=== PATIENT | female | born 1930 | race Caucasian/White ===

== ENCOUNTER 2017-01-04 10:15 | Inpatient (IN) | payer MEDICARE, OTHER ==
[~2017-01-04] VITALS: Ht 152.4 cm; Wt 52.0 kg
[~2017-01-04 10:15] MED LIST: ASPI81CH CHEW; BRIM0.155 EACH EYE; BUPR100T4 PO; CALC600T4 PO; CENTTAB PO; CLON0.2T PO; FURO40TA PO; HYDR25TA5 PO; LATA0.002 EACH EYE; OMEG100037 PO; POTA10TA8 PO; PROT40TA PO; RISP0.5T20 PO
[2017-01-04 10:26] VITALS: BP 167/115; PULSE 85; RESP 27; TEMP 99; O2SAT 91
[2017-01-04] MEDS ORDERED: SODIUM CHLORIDE 0.9% FLUSH 10 ML FLUSH IVF PRN (11:00)
--- NOTE | 2017-01-04 11:33 | RADRPT ---
EXAM DATE/TIME: 01/04/2017 11:14 [facility] COMPARISON: No previous studies available for comparison. INDICATIONS : Weakness, burning in chest and throat. MEDICAL HISTORY : None. SURGICAL HISTORY : None. ENCOUNTER: Initial ACUITY: 1 day PAIN SCORE: Non-responsive. LOCATION: Bilateral chest FINDINGS: Cardiomegaly and aortic calcification. Elevation of the right hemidiaphragm with right basilar atelec tasis. Osseous structures are intact. Minimal linear atelectasis at the left base. CONCLUSION: Mild atelectatic changes. Rigo Garza MD on January 04, 2017 at 11:31 Board Certified Radiologist. This report was verified electronically.
--- NOTE | 2017-01-04 11:43 | PD ---
HPI Chief Complaint: Abdominal Pain Time Seen by Provider: 11:05 Travel History International Travel<30 days: No Contact w/Intl Traveler<30days: No Traveled to known affect area: No History of Present Illness HPI Patient comes from nursing facility where she was reportedly complaining of abdominal pain. Patient states that she feels that she is part of a "sadistic cult" at the building where she resides. Patient states that a man who checks her blood pressure at night speaks to her in Khmer and make strange gesture towards her. Patient denies any chest pain, shortness of breath, abdominal pain , nausea, vomiting, diarrhea, or fevers. Patient requesting that her urine be checked but denies any urinary symptoms. PFSH Past Medical History Hx Anticoagulant Therapy: Yes (81MG ASA) Bipolar Disorder: Yes Anxiety: Yes Cardiovascular Problems: Yes (HTN) High Cholesterol: Yes Dementia: Yes Diminished Hearing: Yes Hypertension: Yes Psychiatric: Yes (PERSONALITY DISORDER) Tetanus Vaccination: Unknown Influenza Vaccination: No (UNKNOWN) Social History Alcohol Use: No Tobacco Use: No Substance Use: No Allergies-Medications (Allergen,Severity, Reaction): Coded Allergies: No Known Allergies (Unverified , 08/16/16) Reported Meds & Prescriptions Reported Meds & Active Scripts Active Protonix (Pantoprazole Sodium) 40 Mg Tab 40 Mg PO DAILY Reported Fish Oil 1000 mg ([place]-3 Fatty Acids) 1 Cap Cap 1,000 Mg PO DAILY Risperdal (Risperidone) 0.5 Mg Tab 0.5 Mg PO Q12HR Potassium Chloride CR (Potassium Chloride) 10 Meq Tab 10 Meq PO BID Latanoprost Opth Drops (Latanoprost) 0.005% Drops 1 Drop EACH EYE HS Refrigerate until opened. Hydrochlorothiazide 25 Mg Tab 25 Mg PO DAILY Furosemide 40 Mg Tab 40 Mg PO BID Clonidine (Clonidine HCl) 0.2 Mg Tab 0.2 Mg PO BID Centrum Silver (Multiple Vitamins W/ Minerals) 1 Tab 1 Tab PO DAILY Calcium Carbonate 1,500 Mg Tab 1,500 Mg PO BID 1,500 mg calcium carbonate (600 mg elemental calcium) Bupropion HCl 100 Mg Tab 100 Mg PO BID Brimonidine Opth Drops (Brimonidine Tartrate) 0.15% Soln 1 Drop EACH EYE TID Aspirin 81 Mg Chew 81 Mg CHEW DAILY Review of Systems Except as stated in HPI: all other systems reviewed are Neg Physical Exam Narrative GENERAL: Well-developed, overly nourished, in no acute distress, and non-ill appearing. SKIN: Focused skin assessment warm and dry. HEAD: Atraumatic. Normocephalic. EYES: Pupils equal and round. EOMI. No scleral icterus. No injection or drainage. ENT: No nasal bleeding or discharge. Lips are dry, but mucous membranes pink and moist. NECK: Trachea midline. Supple. No nuclear rigidity. CARDIOVASCULAR: Regular rate and rhythm. No murmur appreciated. RESPIRATORY: No accessory muscle use. No respiratory distress. Clear to auscultation. Breath sounds equal bilaterally. GASTROINTESTINAL: Abdomen soft, non-tender, nondistended. Hepatic and splenic margins not palpable. Normal bowel sounds 4. No pulsatile mass. There is a firm mass noted left lower quadrant abdomen. Patient reports this is a fibroid. MUSCULOSKELETAL: No obvious deformities. No clubbing. No cyanosis. No edema. Full range of motion. NEUROLOGICAL: Awake and alert. No obvious cranial nerve deficits. Motor grossly within normal limits. Normal speech. PSYCHIATRIC: Appropriate mood and affect. Data Data Last Documented VS Vital Signs Date Time Temp Pulse Resp B/P Pulse Ox O2 Delivery O2 Flow Rate FiO2 01/04/17 13:59 82 16 152/90 95 Room Air 01/04/17 10:26 99.0 Orders Electrocardiogram (01/04/17 10:56) Complete Blood Count With Diff (01/04/17 10:56) Comprehensive Metabolic Panel (01/04/17 10:56) Creatine Kinase (Cpk) (01/04/17 10:56) Prothrombin Time / Inr (Pt) (01/04/17 10:56) Act Partial Throm Time (Ptt) (01/04/17 10:56) Troponin I (01/04/17 10:56) Urinalysis - C+S If Indicated (01/04/17 10:56) Chest, Single Ap (01/04/17 10:56) Ct Brain W/O Iv Contrast(Rout) (01/04/17 10:56) Ecg Monitoring (01/04/17 10:56) Iv Access Insert/Monitor (01/04/17 10:56) Oximetry (01/04/17 10:56) Sodium Chloride 0.9% Flush (Ns Flush) (01/04/17 11:00) Ct Abd/Pel W Iv Contrast(Rout) (01/04/17 ) Urine Culture (01/04/17 12:00) Ceftriaxone Inj (Rocephin Inj) (01/04/17 13:00) Potassium Phosphate Inj (Potassium Phosp (01/04/17 13:30) Potassium Chloride (Kcl) (01/04/17 13:30) Lorazepam Inj (Ativan Inj) (01/04/17 14:15) Admit Order (Ed Use Only) (01/04/17 15:25) Labs Laboratory Tests Test 01/04/17 12:00 White Blood Count 6.8 TH/MM3 Red Blood Count 3.99 MIL/MM3 Hemoglobin 12.4 GM/DL Hematocrit 37.7 % Mean Corpuscular Volume 94.3 FL Mean Corpuscular Hemoglobin 31.0 PG Mean Corpuscular Hemoglobin 32.9 % Concent Red Cell Distribution Width 13.4 % Platelet Count 313 TH/MM3 Mean Platelet Volume 8.4 FL Neutrophils (%) (Auto) 82.5 % Lymphocytes (%) (Auto) 12.6 % Monocytes (%) (Auto) 4.7 % Eosinophils (%) (Auto) 0.1 % Basophils (%) (Auto) 0.1 % Neutrophils # (Auto) 5.6 TH/MM3 Lymphocytes # (Auto) 0.9 TH/MM3 Monocytes # (Auto) 0.3 TH/MM3 Eosinophils # (Auto) 0.0 TH/MM3 Basophils # (Auto) 0.0 TH/MM3 CBC Comment DIFF FINAL Differential Comment Prothrombin Time 12.2 SEC Prothromb Time International 1.1 RATIO Ratio Activated Partial 29.7 SEC Thromboplast Time Urine Color YELLOW Urine Turbidity HAZY Urine pH 6.5 Urine Specific [place] 1.010 Urine Protein 30 mg/dL Urine Glucose (UA) NEG mg/dL Urine Ketones 150 mg/dL Urine Occult Blood NEG Urine Nitrite NEG Urine Bilirubin NEG Urine Urobilinogen LESS THAN 2.0 MG/DL Urine Leukocyte Esterase LARGE Urine RBC 2 /hpf Urine WBC 16 /hpf Urine Squamous Epithelial 2 /hpf Cells Urine Bacteria RARE /hpf Urine Hyaline Casts 2 /lpf Urine Mucus FEW /lpf Microscopic Urinalysis Comment CATH-CULTURE IND Sodium Level 143 MEQ/L Potassium Level 2.9 MEQ/L Chloride Level 106 MEQ/L Carbon Dioxide Level 24.3 MEQ/L Anion Gap 13 MEQ/L Blood Urea Nitrogen 6 MG/DL Creatinine 0.67 MG/DL Estimat Glomerular Filtration 83 ML/MIN Rate Random Glucose 100 MG/DL Calcium Level 8.2 MG/DL Total Bilirubin 1.1 MG/DL Aspartate Amino Transf 10 U/L (AST/SGOT) Alanine Aminotransferase 16 U/L (ALT/SGPT) Alkaline Phosphatase 53 U/L Total Creatine Kinase 52 U/L Troponin I LESS THAN 0.02 NG/ML Total Protein 6.7 GM/DL Albumin 3.6 GM/DL MDM Medical Decision Making Medical Screen Exam Complete: Yes Emergency Medical Condition: Yes Interpretation(s) EKG reviewed by Dr. Riley shows sinus rhythm with ventricular rate of 73. No STEMI. Differential Diagnosis UTI, pneumonia, electrolyte abnormality, dementia, other Narrative Course Patient was seen and examined. Initial laboratory and radiological studies were obtained and reviewed. Discussed patient with Dr. Riley, who saw and evaluated the patient and her parents and patient admitted for altered mental status and UTI. Discussed all findings and plan care of patient, who was agreeable for admission. All questions were answered. Physician Communication Physician Communication [id number] Good, who is agreeable to admit the patient. Diagnosis Primary Impression: Altered mental status, unspecified Additional Impressions: UTI (urinary tract infection) Qualified Code: N39.0 - Urinary tract infection with hematuria, site unspecified Uterine fibroid Qualified Code: D25.9 - Uterine leiomyoma, unspecified location Hydronephrosis Qualified Code: N13.39 - Other hydronephrosis Hypokalemia Admitting Information Admitting Physician Requests: Admit Condition: Stable Chan Guy Jan 04, 2017 11:43
[2017-01-04 12:02] VITALS: O2SAT 96
[2017-01-04 12:47] LABS: AUTOMATED NEUTROPHIL # 5.6 TH/MM3 (1.8-7.7); BASOPHIL % 0.1 % (0.0-2.0); EOSINOPHIL % 0.1 % (0.0-4.0); HEMATOCRIT 37.7 % (35.0-46.0); HEMO FLAGS DIFF FINAL; LYMPH % 12.6 % (9.0-44.0); LYMPHOCYTE # 0.9 TH/MM3 (1.0-4.8); MEAN CELL VOLUME 94.3 FL (80.0-100.0); MEAN CORPUSCULAR HGB CONC 32.9 % (32.0-36.0); MONO % 4.7 % (0.0-8.0); NEUT % 82.5 % (16.0-70.0); PLATELET COUNT 313 TH/MM3 (150-450); RED BLOOD COUNT 3.99 MIL/MM3 (4.00-5.30); RED CELL DISTRIBUTION WIDTH 13.4 % (11.6-17.2); WHITE BLOOD COUNT 6.8 TH/MM3 (4.0-11.0)
[2017-01-04 12:56] LABS: BACTERIA, URINE RARE /hpf; BLOOD, URINE NEG (NEG); GLUCOSE,URINE NEG (NEG); HYALINE CAST, URINE 2 /lpf (RARE); KETONE, URINE 150 mg/dL (NEG); MUCUS URINE FEW /lpf (OCC); NITRITE,URINE NEG (NEG); PH, URINE 6.5 (5.0-8.5); SQUAMOUS EPITHELIAL CELL URINE 2 /hpf (0-5); URINE COLOR YELLOW (YELLW/STRAW)
[2017-01-04 12:57] LABS: COMMENT (UR) CATH-CULTURE IND; CULTURE IF INDICATED CATH CULTURE IND
[2017-01-04 12:58] LABS: APTT (PATIENT) 29.7 SEC (24.3-30.1); INTERNATIONAL NORMALIZED RATIO 1.1 RATIO; PROTHROMBIN TIME - PATIENT 12.2 SEC (9.8-11.6)
[2017-01-04 13:04] LABS: ANION GAP 13 MEQ/L (5-15)
[2017-01-04 13:15] LABS: ALKALINE PHOSPHATASE 53 U/L (45-117); ALT (GPT) 16 U/L (10-53); AST (GOT) 10 U/L (15-37); BICARBONATE 24.3 MEQ/L (21.0-32.0); BLOOD UREA NITROGEN 6 MG/DL (7-18); CHLORIDE 106 MEQ/L (98-107); GLOMERULAR FILTRATION RATE 83 ML/MIN (>89); SODIUM (NA) 143 MEQ/L (136-145); TOTAL BILIRUBIN ADULT 1.1 MG/DL (0.2-1.0)
[2017-01-04 13:19] LABS: CREATINE KINASE 52 U/L (26-192)
[2017-01-04 13:20] LABS: POTASSIUM 2.9 MEQ/L (3.5-5.1)
[2017-01-04] MEDS ORDERED: POTASSIUM PHOSPHATE INJ 30 MMOL in SODIUM CHLOR 0.9% 250 ML INJ 250 ML IV ONE (13:30)
[2017-01-04] MEDS ORDERED: POTASSIUM CHLORIDE 10 MEQ CONTROLLED RELEASE TAB PO ONE (13:30)
[2017-01-04 13:59] VITALS: BP 152/90; PULSE 82; RESP 16; O2SAT 95
[2017-01-04] MEDS ORDERED: LORazepam 2 MG/ML VIAL IV PUSH ONE (14:15)
[2017-01-04] MEDS ORDERED: IOHEXOL 350 MG/ML 10 ML VIAL (for RAD DIAG) IV ONE (14:38)
--- NOTE | 2017-01-04 14:58 | RADRPT ---
EXAM DATE/TIME: 01/04/2017 14:32 [facility] COMPARISON: No previous studies available for comparison. INDICATIONS : Altered mental status. RADIATION DOSE: 56.79 CTDIvol (mGy) MEDICAL HISTORY : Hypertension. Dementia. SURGICAL HISTORY : Right hip replacement. ENCOUNTER: Initial ACUITY: 1 day PAIN SCALE: 0/10 LOCATION: cranial TECHNIQUE: Multiple contiguous axial images were obtained of the head. Using automated exposure control and adj ustment of the mA and/or kV according to patient size, radiation dose was kept as low as reasonably a chievable to obtain optimal diagnostic quality images. FINDINGS: CEREBRUM: There is generalized atrophy with moderate to severe periventricular white matter low attenuation. Ve ntricles are normal in size given the degree of atrophy present. No evidence of midline shift, mass lesion, hemorrhage or acute infarction. No extra-axial fluid collections are seen. There is an old l acune in left caudate nucleus head. POSTERIOR FOSSA: The cerebellum and brainstem demonstrate no acute finding. The 4th ventricle is midline. The cerebe llopontine angle is unremarkable. EXTRACRANIAL: Visualized sinuses are clear. SKULL: The calvaria is intact. No evidence of skull fracture. CONCLUSION: 1. No acute intracranial abnormality is identified. 2. Chronic changes include generalized atrophy and moderate to severe periventricular white matter lo w attenuation characteristic of chronic microvascular ischemia. There is an old lacunae in the left c audate nucleus. Sukhwinder Toledo MD on January 04, 2017 at 14:54 Board Certified Radiologist. This report was verified electronically.
--- NOTE | 2017-01-04 15:22 | RADRPT ---
EXAM DATE/TIME: 01/04/2017 14:38 [facility] COMPARISON: No previous studies available for comparison. INDICATIONS : Abdominal pain. IV CONTRAST: 90 cc Omnipaque 350 (iohexol) IV ORAL CONTRAST: No oral contrast ingested. RADIATION DOSE: 9.96 CTDIvol (mGy) MEDICAL HISTORY : Hypertension. Dementia. SURGICAL HISTORY : Right hip replacement. ENCOUNTER: Initial ACUITY: 1 day PAIN SCALE: 8/10 LOCATION: Bilateral lower quadrant TECHNIQUE: Volumetric scanning of the abdomen and pelvis was performed. Using automated exposure control and ad justment of the mA and/or kV according to patient size, radiation dose was kept as low as reasonably achievable to obtain optimal diagnostic quality images. FINDINGS: Please note that the complete liver dome is not imaged secondary to elevated right hemidiaphragm. LOWER LUNGS: There is mild atelectasis at the left lung base. LIVER: Liver dome is not fully visualized. Visualized portions of the liver demonstrate no acute finding. Th ere is a calcification within or abutting the left lobe of the liver. An 11 mm low density lesion is present in the right liver and density measurements are not indicative of a simple cyst. There is no dilation of the biliary tree. No calcified gallstones. SPLEEN: Normal size without lesion. PANCREAS: Within normal limits. KIDNEYS: There are multiple low density lesions on the kidneys bilaterally which not meet criteria for simple cyst. In particular there is a 10 mm hyperdense lesion in the left upper pole kidney. There is bilate ral hydronephrosis and hydroureter. ADRENAL GLANDS: Within normal limits. VASCULAR: Normal aorta is tortuous with severe atherosclerotic disease. No aneurysm is present. BOWEL/MESENTERY: The stomach demonstrates no acute finding. There are 3 high density ovoid structures in the right upp er quadrant that may represent ingested pills within the GI tract. Small bowel is nondilated. No acut e colon abnormality is seen. ABDOMINAL WALL: Within normal limits. RETROPERITONEUM: There is no lymphadenopathy. BLADDER: No wall thickening or mass. Enlarged uterus impresses on the urinary bladder. REPRODUCTIVE: Markedly enlarged uterus with a lobulated contour in innumerable masses. Uterus measures approximatel y 18.9 x 15.4 x 11.8 cm. It contains multiple coarse calcifications. Ovaries are not visualized. INGUINAL: There is no lymphadenopathy or hernia. MUSCULOSKELETAL: There are degenerative changes of the spine. Right proximal femur hardware is present. CONCLUSION: 1. Markedly enlarged uterus containing innumerable enhancing masses along with areas of coarse calcif ication. The masses are not completely characterized but features are characteristic of multiple uter ine fibroids. 2. The enlarged uterus as mass effect on the ureters bilaterally resulting in bilateral hydronephrosi s. 3. There are bilateral renal lesions that are incompletely characterized, in particular a 10 mm hyper dense lesion at the left upper pole kidney. 4. Severe atherosclerotic disease. Sukhwinder Toledo MD on January 04, 2017 at 15:14 Board Certified Radiologist. This report was verified electronically.
--- NOTE | 2017-01-04 16:36 | HHI.HP ---
cc: Joe Armenta MD [facility] Service [facility] Primary Care Physician Joe Armenta MD Admission Diagnosis altered mental status, hypokalemia, uti Diagnoses: Chief Complaint: Abdominal pain, altered mental status, UTI Travel History International Travel<30 Days: No Contact w/Intl Traveler <30 Da: No Traveled to Known Affected Are: No History of Present Illness Patient is an 87-year-old female from nursing facility with primary medical history of HTN, anxiety, bipolar disorder who came into the hospital for complaints of abdominal pain. As per report, patient states that she feels that she is part of a "sadistic cult" at the building where she resides. Patient states that a man who checks her blood pressure at night speaks to her in Welsh and make strange gesture towards her. Patient seen and examined. States she is doing well and she wants to go home. Discussed with patient results of CT scan of the abdomen and pelvis, and urinary specimen collected. Patient states that she has had the uterine fibroids for more than 40 years and it has never bothered her. States she doesn't want any surgical intervention. Patient also reports she has urinary tract infection on and off and she takes antibiotics orally if she has one. Patient denies any abdominal pain, cramping , constipation, nausea, vomiting, diarrhea. Patient denies dysuria, hematuria, burning sensation, frequency, urgency. She also denies SOB/dyspnea, chest pain , palpitations, headaches, dizziness. Patient is oriented to time, place, person. However questionable capacity to decide on her personal health is questionable. Patient has a [id number] who will be coming in to see her. We'll speak with [id number] or have nursing speak with [id number] regarding patient admission. Review of Systems ROS Limitations: Poor Historian Past Family Social History Past Medical History HTN Anxiety Bipolar Personality disorder Glaucoma Past Surgical History Left hip replacement Reported Medications Protonix (Pantoprazole Sodium) 40 Mg Tab 40 Mg PO DAILY ([place]-3 Fatty Acids) 1 Cap Cap 1,000 Mg PO DAILY Risperdal (Risperidone) 0.5 Mg Tab 0.5 Mg PO Q12HR Potassium Chloride CR (Potassium Chloride) 10 Meq Tab 10 Meq PO BID Latanoprost Opth Drops (Latanoprost) 0.005% Drops 1 Drop EACH EYE HS Refrigerate until opened. Hydrochlorothiazide 25 Mg Tab 25 Mg PO DAILY Furosemide 40 Mg Tab 40 Mg PO BID Clonidine (Clonidine HCl) 0.2 Mg Tab 0.2 Mg PO BID Centrum Silver (Multiple Vitamins W/ Minerals) 1 Tab 1 Tab PO DAILY Calcium Carbonate 1,500 Mg Tab 1,500 Mg PO BID 1,500 mg calcium carbonate (600 mg elemental calcium) Bupropion HCl 100 Mg Tab 100 Mg PO BID Brimonidine Opth Drops (Brimonidine Tartrate) 0.15% Soln 1 Drop EACH EYE TID Aspirin 81 Mg Chew 81 Mg CHEW DAILY Allergies: Coded Allergies: No Known Allergies (Unverified , 08/16/16) Active Ordered Medications Current Medications Medications (Trade) Dose Ordered Sig/Jocy Route Start Time Stop Time Status Last Admin (NS Flush) 2 ml UNSCH PRN IVF 01/04/17 11:00 Family History Grandfather has diabetes Social History Patient lives in an assisted living facility, [facility] Patient denies alcohol use Denies tobacco use Denies subjective drug use Physical Exam Vital Signs Vital Signs Date Time Temp Pulse Resp B/P Pulse Ox O2 Delivery O2 Flow Rate FiO2 01/04/17 13:59 82 16 152/90 95 Room Air 01/04/17 12:02 96 01/04/17 10:26 99.0 85 27 167/115 91 Physical Exam GENERAL: This is a thin-appearing, well-developed patient, agitated. SKIN: Warm and dry. Bilateral lower extremity erythema, venous stasis HEAD: Atraumatic. Normocephalic. No temporal or scalp tenderness. EYES: Pupils equal round and reactive. No scleral icterus. No injection or drainage. ENT: Nose without bleeding. Throat without erythema. Uvula midline. Airway patent. NECK: Trachea midline. No JVD or lymphadenopathy. Supple. CARDIOVASCULAR: Regular rate with extra beats, systolic 3/6 murmurs, gallops, or rubs. RESPIRATORY: Clear to auscultation. Breath sounds equal bilaterally. No wheezes , rales, or rhonchi. GASTROINTESTINAL: Abdomen soft, non-tender, distended, multiple palpable masses left lower quadrant and right lower quadrant. Bowel sounds hypoactive 4 MUSCULOSKELETAL: Extremities without clubbing, cyanosis, bilateral lower extremity trace edema. Pedal Pulses are palpable bilateral, equal, cool to touch. NEUROLOGICAL: Awake and alert. Oriented to time, place, person. Motor and sensory grossly within normal limits. Loud speech. Agitated. Laboratory Laboratory Tests Test 01/04/17 12:00 White Blood Count 6.8 Red Blood Count 3.99 Hemoglobin 12.4 Hematocrit 37.7 Mean Corpuscular Volume 94.3 Mean Corpuscular Hemoglobin 31.0 Mean Corpuscular Hemoglobin 32.9 Concent Red Cell Distribution Width 13.4 Platelet Count 313 Mean Platelet Volume 8.4 Neutrophils (%) (Auto) 82.5 Lymphocytes (%) (Auto) 12.6 Monocytes (%) (Auto) 4.7 Eosinophils (%) (Auto) 0.1 Basophils (%) (Auto) 0.1 Neutrophils # (Auto) 5.6 Lymphocytes # (Auto) 0.9 Monocytes # (Auto) 0.3 Eosinophils # (Auto) 0.0 Basophils # (Auto) 0.0 CBC Comment DIFF FINAL Differential Comment Prothrombin Time 12.2 Prothromb Time International 1.1 Ratio Activated Partial 29.7 Thromboplast Time Urine Color YELLOW Urine Turbidity HAZY Urine pH 6.5 Urine Specific [place] 1.010 Urine Protein 30 Urine Glucose (UA) NEG Urine Ketones 150 Urine Occult Blood NEG Urine Nitrite NEG Urine Bilirubin NEG Urine Urobilinogen LESS THAN 2.0 Urine Leukocyte Esterase LARGE Urine RBC 2 Urine WBC 16 Urine Squamous Epithelial 2 Cells Urine Bacteria RARE Urine Hyaline Casts 2 Urine Mucus FEW Microscopic Urinalysis Comment CATH-CULTURE IND Sodium Level 143 Potassium Level 2.9 Chloride Level 106 Carbon Dioxide Level 24.3 Anion Gap 13 Blood Urea Nitrogen 6 Creatinine 0.67 Estimat Glomerular Filtration 83 Rate Random Glucose 100 Calcium Level 8.2 Total Bilirubin 1.1 Aspartate Amino Transf 10 (AST/SGOT) Alanine Aminotransferase 16 (ALT/SGPT) Alkaline Phosphatase 53 Total Creatine Kinase 52 Troponin I LESS THAN 0.02 Total Protein 6.7 Albumin 3.6 Date/Time Procedure Status Source Growth 01/04/17 12:00 Urine Culture Received Urine Catheterized Urine Pending Result Diagram: 01/04/17 1200 01/04/17 1200 Assessment and Plan Problem List: (1) UTI (urinary tract infection) ICD Code: N39.0 Status: Acute (2) Hypokalemia ICD Code: E87.6 Status: Acute (3) Altered mental status, unspecified ICD Code: R41.82 Status: Acute (4) Uterine fibroid ICD Code: D25.9 Status: Acute (5) Hydronephrosis ICD Code: N13.30 Status: Acute (6) Acid reflux ICD Code: K21.9 Status: Acute (7) Elevated blood pressure reading ICD Code: R03.0 Status: Acute (8) Anxiety ICD Code: F41.9 Status: Acute Assessment and Plan Patient is an 87-year-old female from nursing facility with primary medical history of HTN, anxiety, bipolar disorder who came into the hospital for complaints of abdominal pain. As per report, patient states that she feels that she is part of a "sadistic cult" at the building where she resides. Patient states that a man who checks her blood pressure at night speaks to her in Welsh and make strange gesture towards her. Urinary tract infection Hydronephrosis - CT of the abdomen and pelvis showed 1. Markedly enlarged uterus containing innumerable enhancing masses along with areas of coarse calcification. The masses are not completed to characterize with features are characteristic of multiple uterine fibroids. #2. The enlarged uterus as mass effect on the ureters bilaterally resulting in bilateral hydronephrosis. #3. There are bilateral renal lesions that are incompletely characterized, in particular at 10 mm hyperdensity lesion at the left upper pole kidney. #4. Severe atherosclerotic disease. - Large leukoesterase, UA positive for proteinuria 30, ketones 150 - Given Rocephin IV in the ED - Continue Rocephin for now, follow-up microbiology - Recheck BMP tomorrow, follow renal indices - Hydronephrosis possibly caused by enlarged uterus, patient may need surgical consult for possible intervention. However patient states she doesn't want any surgical procedures. Will need to discuss with patient and family members. Hypokalemia - Potassium was replaced - Recheck BMP, magnesium - Continue potassium supplementation from home. - DC diuretics - Patient states that she has been on potassium supplements for many years. HTN, uncontrolled - Possible increase in BP possibly related to hydronephrosis - Continue home medication clonidine twice a day - Hold Lasix 40 mg, hydrochlorothiazide 25 mg home medications secondary to hydronephrosis and hypokalemia - Monitor BP trend - add another class of agent- instead of diuretics if need for BP control Anxiety, bipolar disorder - Continue with bupropion, Risperdal Glaucoma - Continue eyedrops from home DVT prop Written by Freddy Limon, acting as scribe for Dr. Good on 01/04/17 at 17: 09. This note was transcribed by Freddy Moreno. I, Dr. Nadia Good personally performed the history, physical exam, and medical decision making; and confirmed the accuracy of the information in the transcribed note. Authenticated by Dr. Nadia Good on 01/04/17 at 7;40 pm Code Status Full code Discussed Condition With Patient, nursing, ED attending Physician Certification 2 Midnight Certification Type: Admission for Inpatient Services Order for Inpatient Services The services are ordered in accordance with Medicare regulations or non- Medicare payer requirements, as applicable. In the case of services not specified as inpatient-only, they are appropriately provided as inpatient services in accordance with the 2-midnight benchmark. Estimated LOS (days): 2 days is the estimated time the patient will need to remain in the hospital, assuming treatment plan goals are met and no additional complications. Post-Hospital Plan: Snf/EFREN Problem Qualifiers (1) UTI (urinary tract infection): Qualified Code: N39.0 - Urinary tract infection with hematuria, site unspecified (2) Uterine fibroid: Qualified Code: D25.9 - Uterine leiomyoma, unspecified location (3) Hydronephrosis: Qualified Code: N13.39 - Other hydronephrosis Freddy Dhillon Jan 04, 2017 16:36 Nadia Good MD Jan 04, 2017 19:40
--- NOTE | 2017-01-04 16:56 | PD ---
Physical Exam Narrative GENERAL: elderly female, well-developed patient. SKIN: Warm and dry. HEAD: Normocephalic EYES: No injection or drainage. ENT: No nasal drainage noted. NECK: Supple, trachea midline. CARDIOVASCULAR: Regular rate and rhythm RESPIRATORY: Breath sounds equal bilaterally at apices. No accessory muscle use. GASTROINTESTINAL: Abdomen soft, ttp suprapubic area, nondistended. NEUROLOGICAL: Awake. Moves all extremities. Normal speech. Data Data Last Documented VS Vital Signs Date Time Temp Pulse Resp B/P Pulse Ox O2 Delivery O2 Flow Rate FiO2 01/04/17 13:59 82 16 152/90 95 Room Air 01/04/17 10:26 99.0 Orders Electrocardiogram (01/04/17 10:56) Complete Blood Count With Diff (01/04/17 10:56) Comprehensive Metabolic Panel (01/04/17 10:56) Creatine Kinase (Cpk) (01/04/17 10:56) Prothrombin Time / Inr (Pt) (01/04/17 10:56) Act Partial Throm Time (Ptt) (01/04/17 10:56) Troponin I (01/04/17 10:56) Urinalysis - C+S If Indicated (01/04/17 10:56) Chest, Single Ap (01/04/17 10:56) Ct Brain W/O Iv Contrast(Rout) (01/04/17 10:56) Ecg Monitoring (01/04/17 10:56) Iv Access Insert/Monitor (01/04/17 10:56) Oximetry (01/04/17 10:56) Sodium Chloride 0.9% Flush (Ns Flush) (01/04/17 11:00) Ct Abd/Pel W Iv Contrast(Rout) (01/04/17 ) Urine Culture (01/04/17 12:00) Ceftriaxone Inj (Rocephin Inj) (01/04/17 13:00) Potassium Phosphate Inj (Potassium Phosp (01/04/17 13:30) Potassium Chloride (Kcl) (01/04/17 13:30) Lorazepam Inj (Ativan Inj) (01/04/17 14:15) Admit Order (Ed Use Only) (01/04/17 15:25) Labs Laboratory Tests Test 01/04/17 12:00 White Blood Count 6.8 TH/MM3 Red Blood Count 3.99 MIL/MM3 Hemoglobin 12.4 GM/DL Hematocrit 37.7 % Mean Corpuscular Volume 94.3 FL Mean Corpuscular Hemoglobin 31.0 PG Mean Corpuscular Hemoglobin 32.9 % Concent Red Cell Distribution Width 13.4 % Platelet Count 313 TH/MM3 Mean Platelet Volume 8.4 FL Neutrophils (%) (Auto) 82.5 % Lymphocytes (%) (Auto) 12.6 % Monocytes (%) (Auto) 4.7 % Eosinophils (%) (Auto) 0.1 % Basophils (%) (Auto) 0.1 % Neutrophils # (Auto) 5.6 TH/MM3 Lymphocytes # (Auto) 0.9 TH/MM3 Monocytes # (Auto) 0.3 TH/MM3 Eosinophils # (Auto) 0.0 TH/MM3 Basophils # (Auto) 0.0 TH/MM3 CBC Comment DIFF FINAL Differential Comment Prothrombin Time 12.2 SEC Prothromb Time International 1.1 RATIO Ratio Activated Partial 29.7 SEC Thromboplast Time Urine Color YELLOW Urine Turbidity HAZY Urine pH 6.5 Urine Specific [place] 1.010 Urine Protein 30 mg/dL Urine Glucose (UA) NEG mg/dL Urine Ketones 150 mg/dL Urine Occult Blood NEG Urine Nitrite NEG Urine Bilirubin NEG Urine Urobilinogen LESS THAN 2.0 MG/DL Urine Leukocyte Esterase LARGE Urine RBC 2 /hpf Urine WBC 16 /hpf Urine Squamous Epithelial 2 /hpf Cells Urine Bacteria RARE /hpf Urine Hyaline Casts 2 /lpf Urine Mucus FEW /lpf Microscopic Urinalysis Comment CATH-CULTURE IND Sodium Level 143 MEQ/L Potassium Level 2.9 MEQ/L Chloride Level 106 MEQ/L Carbon Dioxide Level 24.3 MEQ/L Anion Gap 13 MEQ/L Blood Urea Nitrogen 6 MG/DL Creatinine 0.67 MG/DL Estimat Glomerular Filtration 83 ML/MIN Rate Random Glucose 100 MG/DL Calcium Level 8.2 MG/DL Total Bilirubin 1.1 MG/DL Aspartate Amino Transf 10 U/L (AST/SGOT) Alanine Aminotransferase 16 U/L (ALT/SGPT) Alkaline Phosphatase 53 U/L Total Creatine Kinase 52 U/L Troponin I LESS THAN 0.02 NG/ML Total Protein 6.7 GM/DL Albumin 3.6 GM/DL MDM Supervised Visit with IVETH: Yes Interpretation(s) CBC & BMP Diagram 01/04/17 12:00 Last [address] 01/04/17 1056 Signed Impressions: Service Date/Time: Wednesday, January 04, 2017 14:32 - CONCLUSION: 1. No acute intracranial abnormality is identified. 2. Chronic changes include generalized atrophy and moderate to severe periventricular white matter low attenuation characteristic of chronic microvascular ischemia. There is an old lacunae in the left caudate nucleus. Sukhwinder Toledo MD Chest X-Ray 01/04/17 1056 Signed Impressions: Service Date/Time: Wednesday, January 04, 2017 11:14 - CONCLUSION: Mild atelectatic changes. Rigo Garza MD Abdomen/Pelvis CT 01/04/17 0000 Signed Impressions: Service Date/Time: Wednesday, January 04, 2017 14:38 - CONCLUSION: 1. Markedly enlarged uterus containing innumerable enhancing masses along with areas of coarse calcification. The masses are not completely characterized but features are characteristic of multiple uterine fibroids. 2. The enlarged uterus as mass effect on the ureters bilaterally resulting in bilateral hydronephrosis. 3. There are bilateral renal lesions that are incompletely characterized, in particular a 10 mm hyperdense lesion at the left upper pole kidney. 4. Severe atherosclerotic disease. Sukhwinder Toledo MD Narrative Course I, Dr. gimenez, have reviewed the advance practice practitioner's documentation and am in agreement, met with the patient face to face, made the diagnosis, and the medical decision making was done by me. *My assessment and Findings: 87 y/o female presents with report of abdominal pain from the ambulance team and here she is concerned that her neighbor is controlling her blood pressure. Patient very difficult to get history from. Workup shows fibroids causing hydronephrosis and urinalysis shows concurrent UTI. She'll be admitted to the hospital for further care Diagnosis Primary Impression: Altered mental status, unspecified Additional Impressions: Hydronephrosis Qualified Code: N13.39 - Other hydronephrosis Uterine fibroid Qualified Code: D25.9 - Uterine leiomyoma, unspecified location UTI (urinary tract infection) Qualified Code: N39.0 - Urinary tract infection with hematuria, site unspecified Hypokalemia Admitting Information Admitting Physician Requests: Admit Condition: Stable Rafaela Gimenez MD Jan 04, 2017 16:56
[2017-01-04 17:56] VITALS: BP 154/90; PULSE 90; RESP 16; O2SAT 95
[2017-01-04 18:07] LABS: BICARBONATE 27.4 MEQ/L (21.0-32.0); MAGNESIUM 2.1 MG/DL (1.5-2.5); POTASSIUM 3.8 MEQ/L (3.5-5.1)
[2017-01-04] MEDS: BRIMONIDINE TARTRATE 0.15% OPHT SOLN 5 ML BTL EACH EYE SCH (19:30)
[2017-01-04 20:00] VITALS: BP 198/100; PULSE 89; RESP 18; TEMP 97.5; O2SAT 97
[2017-01-04] MEDS: CALCIUM CARBONATE 1.25 GM (CA 500 MG) TAB PO SCH (20:36)
[2017-01-04] MEDS: cloNIDine HCL 0.2 MG TAB PO SCH (20:36)
[2017-01-04] MEDS: POTASSIUM CHLORIDE 10 MEQ CONTROLLED RELEASE TAB PO SCH (20:36)
[2017-01-04] MEDS: LATANOPROST 0.005% OPHT SOLN 2.5 ML BTL EACH EYE SCH (21:00)
[2017-01-04] MEDS: risperiDONE 0.5 MG TAB PO SCH (21:00)
[2017-01-04] MEDS: buPROPion HCL 100 MG TAB PO SCH (21:00)
[2017-01-05] VITALS: BP 132/75; PULSE 65; RESP 18; TEMP 97.5; O2SAT 99
[2017-01-05 04:00] VITALS: BP 157/75; PULSE 60; RESP 20; TEMP 96.7; O2SAT 99
[2017-01-05 08:08] VITALS: BP 178/88; PULSE 66; RESP 20; TEMP 97.8; O2SAT 96
[2017-01-05] MEDS: POTASSIUM CHLORIDE 10 MEQ CONTROLLED RELEASE TAB PO SCH ×2 (08:45→21:00)
[2017-01-05] MEDS: risperiDONE 0.5 MG TAB PO SCH ×2 (08:46→21:00)
[2017-01-05] MEDS: buPROPion HCL 100 MG TAB PO SCH ×2 (08:46→21:00)
[2017-01-05] MEDS: CALCIUM CARBONATE 1.25 GM (CA 500 MG) TAB PO SCH ×2 (08:46→21:00)
[2017-01-05] MEDS: cloNIDine HCL 0.2 MG TAB PO SCH ×2 (08:46→21:00)
[2017-01-05] MEDS ORDERED: MULTIVITAMINS/MINERALS THERAPEUTIC TAB PO SCH (09:00)
[2017-01-05] MEDS ORDERED: NON-FORMULARY DRUG (Omega-3 Fatty Acids (Fish Oil 1000 mg) 1,000 MG) PO SCH (09:00)
[2017-01-05] MEDS ORDERED: ASPIRIN 81 MG CHEW TAB CHEW SCH (09:00)
[2017-01-05] MEDS ORDERED: PANTOPRAZOLE SOD 40 MG DELAYED RELEASE TAB PO SCH (09:00)
[2017-01-05] MEDS: BRIMONIDINE TARTRATE 0.15% OPHT SOLN 5 ML BTL EACH EYE SCH ×3 (11:02→16:55)
[2017-01-05] MEDS ORDERED: cefTRIAXone INJ 1,000 MG in SODIUM CHLORIDE 0.9% INJ 100 ML IV SCH (13:00)
[2017-01-05 13:18] VITALS: BP 162/76; PULSE 68; RESP 20; TEMP 97.9; O2SAT 95
--- NOTE | 2017-01-05 15:59 | EKG ---
Date Performed: 01/04/2017 Time Performed: 12:11:40 PTAGE: 87 years EKG: LEFT AXIS DEVIATION VOLTAGE CRITERIA FOR LVH MINOR NONSPECIFIC T-WAVE CHANGE Since previous tracing, no significant change noted ABNORMAL ECG PREVIOUS TRACING : 08/16/2016 11.46 DOCTOR: Joe Valenzuela Interpretating Date/Time 01/05/2017 15:58:11
--- NOTE | 2017-01-05 16:30 | HHI.PR ---
Subjective Remarks no complais patient aware of her fibroid uterus "had it all my life and I dont want any one to touch it ever" denies any abodminal pain, nausea or vomiting Objective Vitals Vital Signs Date Time Temp Pulse Resp B/P Pulse Ox O2 Delivery O2 Flow Rate FiO2 01/05/17 13:18 97.9 68 20 162/76 95 01/05/17 08:08 97.8 66 20 178/88 96 01/05/17 04:00 96.7 60 20 157/75 99 01/05/17 00:00 97.5 65 18 132/75 99 01/04/17 20:00 97.5 89 18 198/100 97 01/04/17 17:56 90 16 154/90 95 Room Air 2 I/O 01/04/17 01/04/17 01/04/17 01/05/17 01/05/17 01/05/17 07:00 15:00 23:00 07:00 15:00 23:00 Intake Total 120 ml 120 ml Balance 120 ml 120 ml Intake Oral 120 ml 120 ml # Voids 2 2 # Bowel Movements 0 0 Result Diagram: 01/04/17 1200 01/04/17 1720 Imaging Last Impressions Head CT 01/04/17 1056 Signed Impressions: Service Date/Time: Wednesday, January 04, 2017 14:32 - CONCLUSION: 1. No acute intracranial abnormality is identified. 2. Chronic changes include generalized atrophy and moderate to severe periventricular white matter low attenuation characteristic of chronic microvascular ischemia. There is an old lacunae in the left caudate nucleus. Sukhwinder Toledo MD Chest X-Ray 01/04/17 1056 Signed Impressions: Service Date/Time: Wednesday, January 04, 2017 11:14 - CONCLUSION: Mild atelectatic changes. Rigo Garza MD Abdomen/Pelvis CT 01/04/17 0000 Signed Impressions: Service Date/Time: Wednesday, January 04, 2017 14:38 - CONCLUSION: 1. Markedly enlarged uterus containing innumerable enhancing masses along with areas of coarse calcification. The masses are not completely characterized but features are characteristic of multiple uterine fibroids. 2. The enlarged uterus as mass effect on the ureters bilaterally resulting in bilateral hydronephrosis. 3. There are bilateral renal lesions that are incompletely characterized, in particular a 10 mm hyperdense lesion at the left upper pole kidney. 4. Severe atherosclerotic disease. Sukhwinder Toledo MD Objective Remarks awake and aler, oriented x 3 anicteric lungs clear regular rhym abdomen soft, nontender, + lower abdominal ass extremities no edema A/P Problem List: (1) UTI (urinary tract infection) ICD Code: N39.0 Status: Acute (2) Hypokalemia ICD Code: E87.6 Status: Acute (3) Altered mental status, unspecified ICD Code: R41.82 Status: Acute (4) Uterine fibroid ICD Code: D25.9 Status: Acute (5) Hydronephrosis ICD Code: N13.30 Status: Acute (6) Acid reflux ICD Code: K21.9 Status: Acute (7) Elevated blood pressure reading ICD Code: R03.0 Status: Acute (8) Anxiety ICD Code: F41.9 Status: Acute Assessment and Plan Patient is an 87-year-old female from nursing facility with primary medical history of HTN, anxiety, bipolar disorder who came into the hospital for complaints of abdominal pain. As per report, patient states that she feels that she is part of a "sadistic cult" at the building where she resides. Patient states that a man who checks her blood pressure at night speaks to her in Romanian and make strange gesture towards her. Urinary tract infection Hydronephrosis - CT of the abdomen and pelvis showed 1. Markedly enlarged uterus containing innumerable enhancing masses along with areas of coarse calcification. The masses are not completed to characterize with features are characteristic of multiple uterine fibroids. #2. The enlarged uterus as mass effect on the ureters bilaterally resulting in bilateral hydronephrosis. #3. There are bilateral renal lesions that are incompletely characterized, in particular at 10 mm hyperdensity lesion at the left upper pole kidney. #4. Severe atherosclerotic disease. - Large leukoesterase, UA positive for proteinuria 30, ketones 150 -on Rocephin change to po antibiotics Levaquin 500 mg po daily x 3 more days - Hydronephrosis possibly caused by enlarged uterus, patient may need surgical consult for possible intervention. patient states she doesn't want any surgical procedures. Hypokalemia- corrected - Potassium was replaced - Continue potassium supplementation from home. - DC diuretics - Patient states that she has been on potassium supplements for many years. HTN, uncontrolled- better readings but not ideal - Continue home medication clonidine twice a day - Hold Lasix 40 mg, hydrochlorothiazide 25 mg home medications secondary to hydronephrosis and hypokalemia - Monitor BP trend - add another class of agent- instead of diuretics if need for BP control- Start Amlodipine 2.5 mg po daily Anxiety, bipolar disorder - Continue with bupropion, Risperdal Glaucoma - Continue eyedrops from home [facility]- [facility]- FF up with Dr. Armenta as OP Problem Qualifiers (1) UTI (urinary tract infection): Qualified Code: N39.0 - Urinary tract infection with hematuria, site unspecified (2) Uterine fibroid: Qualified Code: D25.9 - Uterine leiomyoma, unspecified location (3) Hydronephrosis: Qualified Code: N13.39 - Other hydronephrosis Nadia Good MD Jan 05, 2017 16:30 Nadia Good MD Jan 05, 2017 16:30 Nadia Good MD Jan 05, 2017 16:30
[2017-01-05] MEDS ORDERED: AMLO5 PO (16:41)
[2017-01-05] MEDS ORDERED: LEVA500T PO (16:45)
[2017-01-05 16:47] VITALS: BP 134/74; PULSE 76; RESP 20; TEMP 97.8; O2SAT 93
--- NOTE | 2017-01-05 16:48 | HHI.DS ---
Discharge Summary Admission Date Jan 04, 2017 at 15:26 Discharge Date: Jan 05, 2017 Admitting Diagnosis altered mental status, hypokalemia, uti (1) UTI (urinary tract infection) ICD Code: N39.0 Diagnosis: Principal (2) Hypokalemia ICD Code: E87.6 Diagnosis: Principal (3) Altered mental status, unspecified ICD Code: R41.82 Diagnosis: Secondary (4) Uterine fibroid ICD Code: D25.9 Diagnosis: Secondary (5) Hydronephrosis ICD Code: N13.30 Diagnosis: Secondary (6) Acid reflux ICD Code: K21.9 Diagnosis: Secondary (7) Elevated blood pressure reading ICD Code: R03.0 Diagnosis: Secondary (8) Anxiety ICD Code: F41.9 Diagnosis: Secondary Procedures none Brief History - From Admission Patient is an 87-year-old female from nursing facility with primary medical history of HTN, anxiety, bipolar disorder who came into the hospital for complaints of abdominal pain. As per report, patient states that she feels that she is part of a "sadistic cult" at the building where she resides. Patient states that a man who checks her blood pressure at night speaks to her in Khmer and make strange gesture towards her. Patient seen and examined. States she is doing well and she wants to go home. Discussed with patient results of CT scan of the abdomen and pelvis, and urinary specimen collected. Patient states that she has had the uterine fibroids for more than 40 years and it has never bothered her. States she doesn't want any surgical intervention. Patient also reports she has urinary tract infection on and off and she takes antibiotics orally if she has one. Patient denies any abdominal pain, cramping , constipation, nausea, vomiting, diarrhea. Patient denies dysuria, hematuria, burning sensation, frequency, urgency. She also denies SOB/dyspnea, chest pain , palpitations, headaches, dizziness. Patient is oriented to time, place, person. However questionable capacity to decide on her personal health is questionable. Patient has a [id number] who will be coming in to see her. We'll speak with [id number] or have nursing speak with [id number] regarding patient admission. CBC/BMP: 01/04/17 1200 01/04/17 1720 Significant Findings Laboratory Tests Test 01/04/17 01/04/17 12:00 17:20 Red Blood Count 3.99 MIL/MM3 (4.00-5.30) Neutrophils (%) (Auto) 82.5 % (16.0-70.0) Lymphocytes # (Auto) 0.9 TH/MM3 (1.0-4.8) Prothrombin Time 12.2 SEC (9.8-11.6) Urine Turbidity HAZY (CLEAR) Urine Protein 30 mg/dL (NEG-TRACE) Urine Ketones 150 mg/dL (NEG) Urine Leukocyte Esterase LARGE (NEG) Urine WBC 16 /hpf (0-5) Urine Bacteria RARE /hpf (NONE) Urine Mucus FEW /lpf (OCC) Potassium Level 2.9 MEQ/L (3.5-5.1) Blood Urea Nitrogen 6 MG/DL (7-18) Estimat Glomerular Filtration 83 ML/MIN (>89) 66 ML/MIN (>89) Rate Calcium Level 8.2 MG/DL (8.5-10.1) Total Bilirubin 1.1 MG/DL (0.2-1.0) Aspartate Amino Transf 10 U/L (15-37) (AST/SGOT) Troponin I LESS THAN 0.02 NG/ML (0.02-0.05) Random Glucose 129 MG/DL (74-106) Imaging Last Impressions Head CT 01/04/17 1056 Signed Impressions: Service Date/Time: Wednesday, January 04, 2017 14:32 - CONCLUSION: 1. No acute intracranial abnormality is identified. 2. Chronic changes include generalized atrophy and moderate to severe periventricular white matter low attenuation characteristic of chronic microvascular ischemia. There is an old lacunae in the left caudate nucleus. Sukhwinder Toledo MD Chest X-Ray 01/04/17 1056 Signed Impressions: Service Date/Time: Wednesday, January 04, 2017 11:14 - CONCLUSION: Mild atelectatic changes. Rigo Garza MD Abdomen/Pelvis CT 01/04/17 0000 Signed Impressions: Service Date/Time: Wednesday, January 04, 2017 14:38 - CONCLUSION: 1. Markedly enlarged uterus containing innumerable enhancing masses along with areas of coarse calcification. The masses are not completely characterized but features are characteristic of multiple uterine fibroids. 2. The enlarged uterus as mass effect on the ureters bilaterally resulting in bilateral hydronephrosis. 3. There are bilateral renal lesions that are incompletely characterized, in particular a 10 mm hyperdense lesion at the left upper pole kidney. 4. Severe atherosclerotic disease. Sukhwinder Toledo MD PE at Discharge awake and aler, oriented x 3 anicteric lungs clear regular rhym abdomen soft, nontender, + lower abdominal ass extremities no edema Pt update on day of discharge awake and alert, oriented x 3, very feisty no complains denies any abdominal discomfort Hospital Course Patient is an 87-year-old female from nursing facility with primary medical history of HTN, anxiety, bipolar disorder who came into the hospital for complaints of abdominal pain. As per report, patient states that she feels that she is part of a "sadistic cult" at the building where she resides. Patient states that a man who checks her blood pressure at night speaks to her in Khmer and make strange gesture towards her. Urinary tract infection Hydronephrosis - CT of the abdomen and pelvis showed 1. Markedly enlarged uterus containing innumerable enhancing masses along with areas of coarse calcification. The masses are not completed to characterize with features are characteristic of multiple uterine fibroids. #2. The enlarged uterus as mass effect on the ureters bilaterally resulting in bilateral hydronephrosis. #3. There are bilateral renal lesions that are incompletely characterized, in particular at 10 mm hyperdensity lesion at the left upper pole kidney. #4. Severe atherosclerotic disease. - Large leukoesterase, UA positive for proteinuria 30, ketones 150 -on Rocephin change to po antibiotics Levaquin 500 mg po daily x 3 more days - Hydronephrosis possibly caused by enlarged uterus, patient may need surgical consult for possible intervention. patient states she doesn't want any surgical procedures. Hypokalemia- corrected - Potassium was replaced - Continue potassium supplementation from home. - DC diuretics - Patient states that she has been on potassium supplements for many years. HTN, uncontrolled- better readings but not ideal - Continue home medication clonidine twice a day - Hold Lasix 40 mg, hydrochlorothiazide 25 mg home medications secondary to hydronephrosis and hypokalemia - Monitor BP trend - add another class of agent- instead of diuretics if need for BP control- Start Amlodipine 2.5 mg po daily Anxiety, bipolar disorder - Continue with bupropion, Risperdal Glaucoma - Continue eyedrops from home [facility]- FF up with Dr. Armenta as OP Pt Condition on Discharge: Stable Discharge Disposition: [facility] Discharge Time: <= 30 minutes Discharge Instructions DIET: Follow Instructions for: Heart Healthy Diet Speech Therapy-Diet Recommends: Regular Activities you can perform: Weight Bearing as Francesca Follow up Referrals: PCP Follow-up - 01/07/17 with [facility] New Medications: Amlodipine (Norvasc) 5 Mg Tab 2.5 MG PO DAILY HTN Days 30 TAB Levofloxacin (Levaquin) 500 Mg Tab 500 MG PO DAILY pyuria #3 TAB Continued Medications: Aspirin (Aspirin) 81 Mg Chew 81 MG CHEW DAILY Ref 0 TAB Brimonidine Opth Drops (Brimonidine Opth Drops) 0.15% Soln 1 DROP EACH EYE TID Intraocular pressure #1 Ref 0 BOTTLE Bupropion HCl (Bupropion HCl) 100 Mg Tab 100 MG PO BID Control Depression Ref 0 TAB Calcium Carbonate (Calcium Carbonate) 1,500 Mg Tab 1500 MG PO BID 1,500 mg calcium carbonate (600 mg elemental calcium) Calcium Supplement Ref 0 TAB Clonidine (Clonidine) 0.2 Mg Tab 0.2 MG PO BID Blood Pressure Management #60 Ref 0 TAB Latanoprost Opth Drops (Latanoprost Opth Drops) 0.005% Drops 1 DROP EACH EYE HS Refrigerate until opened. Glaucoma #2.5 Ref 0 ML Multiple Vitamins W/ Minerals (Centrum Silver) 1 Tab 1 TAB PO DAILY Nutritional Supplement Ref 0 TAB Guys-3 Fatty Acids (Fish Oil 1000 mg) 1 Cap Cap 1000 MG PO DAILY Pantoprazole (Protonix) 40 Mg Tab 40 MG PO DAILY Reflux #30 Ref 0 TAB Potassium Chloride ER (Potassium Chloride CR) 10 Meq Tab 10 MEQ PO BID TAB Risperidone (Risperdal) 0.5 Mg Tab 0.5 MG PO Q12HR #60 Ref 0 TAB Discontinued Medications: Furosemide (Furosemide) 40 Mg Tab 40 MG PO BID #60 Ref 0 TAB Hydrochlorothiazide (Hydrochlorothiazide) 25 Mg Tab 25 MG PO DAILY #30 Ref 0 TAB Nadia Good MD Jan 05, 2017 16:48
[2017-01-05] MEDS ORDERED: amLODIPine BESYLATE 5 MG TAB PO SCH (17:00)
[2017-01-05] MEDS: LATANOPROST 0.005% OPHT SOLN 2.5 ML BTL EACH EYE SCH (21:00)
[2017-01-06] MEDS ORDERED: LEVOFLOXACIN 500 MG TAB PO SCH (09:00)
== END 2017-01-05 21:43 | DRG 690 ==
LOC: NEPC 10:15 → NEDA 15:26 → N05A 18:47
PROVIDERS: ADMIT Internal Medicine; ATTEND Internal Medicine
DX: N39.0 Urinary tract infection, site not specified (principal); N13.30 Unspecified hydronephrosis; F03.90 Unspecified dementia, unspecified severity, without behavioral disturbance, psychotic disturbance, mood disturbance, and anxiety; F31.9 Bipolar disorder, unspecified; I10 Essential (primary) hypertension; E78.5 Hyperlipidemia, unspecified; F41.9 Anxiety disorder, unspecified; D25.9 Leiomyoma of uterus, unspecified; E87.6 Hypokalemia; H40.9 Unspecified glaucoma; K21.9 Gastro-esophageal reflux disease without esophagitis
CPT/HCPCS: 70450; 71010; 74177; 80048; 80053; 81001; 82550; 83735; 84484; 85025; 85610; 85730; 87086; 93005; 96372; J0696; Q9967

== ENCOUNTER 2017-02-27 19:29 | Emergency (ER) | payer MEDICARE, OTHER ==
[~2017-02-27 19:29] MED LIST changes: +AMLO5 PO; -FURO40TA PO; -HYDR25TA5 PO; +LEVA500T PO
[2017-02-27 19:50] VITALS: BP 122/57; PULSE 69; RESP 15; TEMP 98.4; O2SAT 94
--- NOTE | 2017-02-27 20:21 | PD ---
Physical Exam Time Seen by Provider: 20:19 Narrative 87yo F c/o bug bite to R lower back 3 days ago. Denies fever, vomiting. Patient seen in triage. VS reviewed. Awaiting bed placement. Data Data Last Documented VS Vital Signs Date Time Temp Pulse Resp B/P Pulse Ox O2 Delivery O2 Flow Rate FiO2 02/27/17 19:50 98.4 69 15 122/57 94 Room Air [facility] Supervised Visit with IVETH: Rosalina Montes Feb 27, 2017 20:20
[2017-02-27] MEDS ORDERED: SKIN PROTECTANT PASTE 57 GM TUBE TOPICAL ONE (21:00)
[2017-02-27] MEDS ORDERED: DESIOIN3 TOPICAL (21:08)
--- NOTE | 2017-02-27 21:08 | PD ---
HPI Chief Complaint: Bite or Sting Time Seen by Provider: 20:54 Travel History International Travel<30 days: No Contact w/Intl Traveler<30days: No Traveled to known affect area: No History of Present Illness HPI Patient is an 87 year old female presenting to the emergency for evaluation of a bug bite to her left upper gluteal fold for the last 2-3 days. Patient denies any drainage. She states it feels sore and is worse when she tries to sleep at night. She reports her pain is 8 out of 10 when she lays on it. She denies any fevers, chills, abdominal pain, chest pain, shortness of breath. PFSH Past Medical History Hx Anticoagulant Therapy: Yes (81MG ASA) Arthritis: No Asthma: No Autoimmune Disease: No Bipolar Disorder: Yes Anxiety: Yes Heart Rhythm Problems: No Cancer: No Cardiovascular Problems: No High Cholesterol: No Chemotherapy: No Chest Pain: No Congestive Heart Failure: No COPD: No Cerebrovascular Accident: No Dementia: Yes Diabetes: No Diminished Hearing: Yes Endocrine: No GERD: No Glaucoma: Yes Genitourinary: No Hiatal Hernia: No Hypertension: Yes Immune Disorder: No Kidney Stones: No Musculoskeletal: No Neurologic: No Psychiatric: No Respiratory: No Migraines: No Radiation Therapy: No Renal Failure: No Seizures: No Sickle Cell Disease: No Sleep Apnea: No Thyroid Disease: No Ulcer: No ?: Not Past Surgical History Abdominal Surgery: No AICD: No Arteriovenous Shunt: No Cardiac Surgery: No Ear Surgery: No Endocrine Surgery: No Eye Surgery: No Genitourinary Surgery: No Gynecologic Surgery: No Insulin Pump: No Joint Replacement: Yes (hip) Oral Surgery: No Pacemaker: No Thoracic Surgery: No Social History Alcohol Use: No Tobacco Use: No Substance Use: No Allergies-Medications (Allergen,Severity, Reaction): Coded Allergies: No Known Allergies (Unverified , 02/27/17) Reported Meds & Prescriptions Reported Meds & Active Scripts Active Levaquin (Levofloxacin) 500 Mg Tab 500 Mg PO DAILY Norvasc (Amlodipine Besylate) 5 Mg Tab 2.5 Mg PO DAILY 30 Days Protonix (Pantoprazole Sodium) 40 Mg Tab 40 Mg PO DAILY Reported Fish Oil 1000 mg ([place]-3 Fatty Acids) 1 Cap Cap 1,000 Mg PO DAILY Risperdal (Risperidone) 0.5 Mg Tab 0.5 Mg PO Q12HR Potassium Chloride CR (Potassium Chloride) 10 Meq Tab 10 Meq PO BID Latanoprost Opth Drops (Latanoprost) 0.005% Drops 1 Drop EACH EYE HS Refrigerate until opened. Clonidine (Clonidine HCl) 0.2 Mg Tab 0.2 Mg PO BID Centrum Silver (Multiple Vitamins W/ Minerals) 1 Tab 1 Tab PO DAILY Calcium Carbonate 1,500 Mg Tab 1,500 Mg PO BID 1,500 mg calcium carbonate (600 mg elemental calcium) Bupropion HCl 100 Mg Tab 100 Mg PO BID Brimonidine Opth Drops (Brimonidine Tartrate) 0.15% Soln 1 Drop EACH EYE TID Aspirin 81 Mg Chew 81 Mg CHEW DAILY Review of Systems Except as stated in HPI: all other systems reviewed are Neg Skin: Positive Lesions Physical Exam Narrative GENERAL: Well-nourished, well-developed patient. SKIN: Focused skin assessment warm/dry. Left upper gluteal fold with thickened , scaly skin. No erythema, induration or exudates noted. Mildly tender to palpation. HEAD: Normocephalic. EYES: No scleral icterus. No injection or drainage. NECK: Supple, trachea midline. No JVD or lymphadenopathy. CARDIOVASCULAR: Regular rate and rhythm without murmurs, gallops, or rubs. RESPIRATORY: Breath sounds equal bilaterally. No accessory muscle use. GASTROINTESTINAL: Abdomen soft, non-tender, nondistended. MUSCULOSKELETAL: No cyanosis, 1+ peripheral edema bilaterally, venous stasis. BACK: Kyphosis. No CVA tenderness. Data Data Last Documented VS Vital Signs Date Time Temp Pulse Resp B/P Pulse Ox O2 Delivery O2 Flow Rate FiO2 02/27/17 19:50 98.4 69 15 122/57 94 Room Air [facility] Medical Decision Making Medical Screen Exam Complete: Yes Emergency Medical Condition: Yes Medical Record Reviewed: Yes Interpretation(s) Vital Signs Date Time Temp Pulse Resp B/P Pulse Ox O2 Delivery O2 Flow Rate FiO2 02/27/17 19:50 98.4 69 15 122/57 94 Room Air Differential Diagnosis Abscess versus cellulitis versus eczema versus pressure ulcer versus other Narrative Course Patient is an 87-year-old female presenting to the emergency department for evaluation of a possible bug bite to her left upper gluteal fold for the last 2- 3 days. Physical examination is without signs or symptoms of infection. Patient's vital signs are stable. Skin protecting cream ordered. Patient will be discharged back to the assisted-living facility with prescription for skin protecting cream. She is encouraged follow-up with her primary care provider Dr. Armenta. She was encouraged to return to emergency department for any new or worsening symptoms. Diagnosis Primary Impression: Skin ulcer of buttock Qualified Code: L98.419 - Skin ulcer of buttock, with unspecified severity Referrals: Joe Armenta MD 2 days Patient Instructions: General Instructions, Pressure Ulcer (ED) Additional Instructions: Use medications as directed Change positions frequently Follow-up with Dr. Armenta in 2-3 days Return to emergency department for any new or worsening symptoms Med/Other Pt SpecificInfo: Prescription(s) given Scripts Diaper Rash Products (Desitin Topical)1 Application Oint1 Applic TOPICAL DIRECTED PRN (DIAPER RASH) #60 GM Ref 0 Prov:Christine Dc 02/27/17 Disposition: 01 DISCHARGE HOME Condition: Stable Christine Dc Feb 27, 2017 21:08
== END 2017-02-28 08:53 | disposition home or self-care (01) ==
LOC: NEPD 19:29
DX: L98.419 Non-pressure chronic ulcer of buttock with unspecified severity (principal); I10 Essential (primary) hypertension
CPT/HCPCS: 99283